=== PATIENT | male | born 1995 | race African-American/Black ===

== ENCOUNTER 2019-09-20 17:45 | Emergency (ER) | payer OTHER ==
[~2019-09-20] VITALS: Ht 167.6 cm; Wt 74.8 kg
[~2019-09-20 17:45] MED LIST: AMOXICILLIN 50500 M1 PO; APAP/CODEINE ELI5 M1 OR; AUGMENTIN 875-1 EACH PO; IBUPROFEN 600600 M1 PO; IBUPROFEN 800800 M1 PO; NAPROSYN500 MG PO; NEXIUM40 MG PO; NORCO 5-325 TA1 EACH PO; OMEPRAZOLE; TESSALON PERLE100 M1 PO; TRAMADOL 50 MG50 MG PO; XANAX 0.5 MG0.5 M1 PO; ZANTAC 150MG T150 M1 PO; ZPAK PO
[2019-09-20 18:45] LABS: ABSOLUTE NEUTROPHILS 4.5 thou/uL (1.4-8.2); BASOPHILS 0.5 % (0.0-2.0); EOSINOPHILS 0.1 % (0.0-3.0); HEMATOCRIT 47.9 % (42.0-52.0); HEMOGLOBIN 16.3 gm/dL (14.0-18.0); LYMPHOCYTES 17.6 % (24.0-44.0); MCH 29.1 pg (26.0-34.0); MCV 85.4 fL (80.0-100.0); MONOCYTES 7.6 % (1.0-8.0); PLATELET COUNT 187 thou/uL (150-400); POLYS 74.2 % (36.0-66.0); RBC 5.61 mil/uL (4.50-6.00); RDW 13.3 % (10.5-14.5); WBC 6.1 thou/uL (4.0-11.0)
[2019-09-20 18:54] LABS: ANION GAP 8 mmol/L (7-16); BUN 12 mg/dL (7-18); CALCIUM 10.1 mg/dL (8.5-10.1); CHLORIDE 101 mmol/L (98-107); CO2 30 mmol/L (21-32); CREATININE 1.1 mg/dL (0.7-1.3); GLUCOSE 75 mg/dL (74-106); POTASSIUM 3.6 mmol/L (3.5-5.1); SODIUM 139 mmol/L (136-145)
[2019-09-20 19:04] LABS: ALBUMIN 4.7 g/dL (3.4-5.0); SGOT 20 U/L (15-37); SGPT 56 U/L (30-65); TOTAL BILIRUBIN 0.5 mg/dL (<0.1-1.0); TOTAL PROTEIN 8.7 g/dL (6.4-8.2); TROPONIN-I <0.06 ng/mL (<0.06)
[2019-09-20 19:28] LABS: AMP/METHAMP Negative (Negative); BARBITURATES Negative (Negative); BENZODIAZEPINES Negative (Negative); COCAINE Negative (Negative); METHADONE Negative (Negative); OPIATES Negative (Negative); PCP Negative (Negative)
[2019-09-20] MEDS ORDERED: NAPROSYN500 MG PO (19:43)
[2019-09-20] MEDS ORDERED: PRILOSEC OTC20 MG PO (19:43)
[2019-09-20] MEDS ORDERED: NORFLEX100 MG PO (19:43)
[2019-09-20 20:51] VITALS: BP 128/70
--- NOTE | 2019-09-21 08:29 | EKG ---
[address] [place] [address] ELECTROCARDIOGRAM REPORT Name: SONDRA CARRERA [facility] [id number] Admission: 09/20/19 Attend Phys: Discharge: 09/20/19 Date of : 89 Report #: [id number] THIS REPORT FOR: //name// [facility] ED Test Date: 2019-09-20 Test Time: 17:48:09 Pat Name: SONDRA CARRERA Department: Room: Gender: Director Of [employer]: : 1995 Requested By: Jamarcus Rod Order Number: [id number] MD: Jun Acevedo Measurements Intervals [place] Rate: 82 P: 56 MI: 169 QRS: 81 QRSD: 92 T: 50 QT: 368 QTc: 430 Interpretive Statements Sinus arrhythmia ST elevation, consider early repolarization Compared to ECG 03/08/2011 00:23:51 ST (T wave) deviation now present Sinus arrhythmia is now present Electronically Signed On 09-21-2019 8:29:23 [employer] by Jun Acevedo [email or web address] <ELECTRONICALLY SIGNED> By: Jun Acevedo MD, [facility] 09/21/19 0829 [id number] Jun Acevedo MD, [facility] /EPI
== END 2019-09-20 20:52 | disposition home or self-care (01) ==
LOC: ER 17:45
PROVIDERS: Emergency Medicine
DX: G44.209 Tension-type headache, unspecified, not intractable (principal); K21.9 Gastro-esophageal reflux disease without esophagitis; M43.6 Torticollis; M26.69 Other specified disorders of temporomandibular joint; F17.210 Nicotine dependence, cigarettes, uncomplicated; F12.90 Cannabis use, unspecified, uncomplicated